=== PATIENT | male | born 1945 | race Caucasian/White ===

== ENCOUNTER 2023-07-06 11:09 | Inpatient (IN) | payer OTHER, MEDICARE ==
[~2023-07-06] VITALS: Ht 170.2 cm; Wt 84.4 kg
[2023-07-06 11:10] VITALS: BP_SYST 138; PULSE 81; RESP 18; TEMP 98.4; O2SAT 98
[2023-07-06] MEDS ORDERED: MORPHINE 4 MG INJ. 4 MG/ML VIAL IVP ONE (11:45)
[2023-07-06] MEDS ORDERED: ONDANSETRON HCL 4 MG/2 ML VIAL IVP ONE (11:45)
[2023-07-06] MEDS ORDERED: NACL 0.9% 1,000 ML IV ONE ×2 (11:45→15:30)
[2023-07-06 12:11] LABS: BASOPHILS % (AUTO) 0.4 % (0.0-2.0); EOSINOPHILS % (AUTO) 0.1 % (0.0-4.0); HEMATOCRIT 40.8 % (36-54); HEMOGLOBIN 13.7 g/dL (14.0-18.0); LYMPHOCYTES # (AUTO) 0.5 K/uL (1.0-5.5); LYMPHOCYTES % (AUTO) 4.4 % (20.5-51.5); MEAN CORPUSCULAR HEMOGLOBIN 30 pg (27-31); MEAN CORPUSCULAR HGB CONC 34 % (32-36); MEAN CORPUSCULAR VOLUME 88 fL (79.0-98.0); MONOCYTES % (AUTO) 8.6 % (1.7-9.3); NEUTROPHILS # (AUTO) 10.4 K/uL (1.8-7.7); NEUTROPHILS % (AUTO) 86.5 % (40.0-70.0); PLATELET COUNT (AUTO) 328 K/uL (130-430); RED BLOOD CELL COUNT(AUTO) 4.62 MIL/uL (4.2-6.2); RED CELL DISTRIBUTION WIDTH 13.2 % (9.0-15.0); WHITE BLOOD COUNT (AUTO) 12.1 K/uL (4.8-10.8)
[2023-07-06 12:16] LABS: PROTHROMBIN TIME 10.1 SECS (9.5-12.5)
[2023-07-06 12:17] LABS: ANION GAP 10 (5-15); CALCIUM 9.5 mg/dL (8.4-11.0); CARBON DIOXIDE 27 mmol/L (23-29); CHLORIDE 100 mmol/L (98-107); CREATININE 1.39 mg/dL (0.55-1.30); GLUCOSE 159 mg/dL (74-106); POTASSIUM 3.8 mmol/L (3.5-5.1); SODIUM SERUM 137 mmol/L (136-145); UREA NITROGEN, BLOOD 18 mg/dL (8-21)
[2023-07-06 12:22] LABS: ALANINE AMINOTRANSFERASE 205 U/L (12-78); ALBUMIN 3.1 g/dL (3.4-4.8); ASPARTATE AMINOTRANSFERASE 114 U/L (10-37); LIPASE 63 U/L (16-77); TOTAL BILIRUBIN 3.8 mg/dL (0.0-1.0); TOTAL PROTEIN, SERUM 7.2 g/dL (6.4-8.3)
[2023-07-06 14:10] LABS: BILIRUBIN,URINE 1+ (NEGATIVE); BLOOD, URINE NEGATIVE (NEGATIVE); CLARITY/URINE CLEAR (CLEAR); COLOR,URINE YELLOW (YELLOW); GLUCOSE,URINE NEGATIVE (NEGATIVE); KETONES,URINE NEGATIVE (NEGATIVE); LEUKOCYTE ESTERASE ,URINE NEGATIVE (NEGATIVE); NITRITE, URINE NEGATIVE (NEGATIVE); PH,URINE 5.5 (5.0-8.0); PROTEIN URINE NEGATIVE (NEGATIVE)
[2023-07-06] MEDS ORDERED: MEROPENEM 1 GM in NS 100 ML IV ONE (15:30)
[2023-07-06] MEDS ORDERED: LEVO150T PO (16:05)
[2023-07-06] MEDS ORDERED: METF-1069 PO (16:05)
[2023-07-06] MEDS ORDERED: LOSA100T24 PO (16:05)
[2023-07-06] MEDS ORDERED: ESOM40CA53 PO (16:05)
[2023-07-06] MEDS ORDERED: SIMV-43 PO (16:05)
[2023-07-06 20:05] VITALS: BP_SYST 138; PULSE 55; RESP 16; TEMP 97.8; O2SAT 96
[2023-07-06 20:10] VITALS: BP_SYST 138; PULSE 55; RESP 16; TEMP 98.2; O2SAT 96
[2023-07-07] MEDS ORDERED: HYDROcodone/ACETAMIN 10-325 MG TAB PO PRN
[2023-07-07] MEDS ORDERED: HYDROcodone/ACETAMIN 5-325 MG TAB (NORCO/ VICODIN) PO PRN
[2023-07-07] MEDS: SIMETHICONE 80 MG TAB.CHEW PO SCH ×2 (00:38→23:07)
[2023-07-07 01:06] VITALS: BP_SYST 127; PULSE 43; RESP 18; TEMP 98.6; O2SAT 96
[2023-07-07 07:30] VITALS: BP_SYST 148; PULSE 47; RESP 18; TEMP 98.1; O2SAT 97
[2023-07-07] MEDS ORDERED: LORazepam 2 MG/ML VIAL IVP PRN (10:45)
[2023-07-07] MEDS ORDERED: MORPHINE 4 MG INJ. 4 MG/ML VIAL IVP PRN (10:45)
[2023-07-07] MEDS ORDERED: NALOXONE HCL 0.4 MG/ML AMP (NARCAN) IVP PRN ×2 (10:45)
[2023-07-07] MEDS ORDERED: MORPHINE 2 MG/ML INJ. SYRINGE IVP PRN (10:45)
[2023-07-07] MEDS ORDERED: ONDANSETRON HCL 4 MG/2 ML VIAL IVP PRN (10:45)
[2023-07-07] MEDS ORDERED: INSULIN REGULAR, HUMAN 100 UNITS/ML, 3 ML VIAL (humuLIN R) SUBCUT PRN (10:45)
[2023-07-07] MEDS: D5/0.45 NS 1,000 ML IV SCH ×2 (11:09→23:07)
[2023-07-07 11:30] VITALS: BP_SYST 154; PULSE 48; RESP 18; TEMP 98.5; O2SAT 97
[2023-07-07 16:00] VITALS: BP_SYST 160; PULSE 44; RESP 18; TEMP 97.7; O2SAT 98
[2023-07-07 20:00] VITALS: BP_SYST 137; PULSE 62; RESP 20; TEMP 97.5; O2SAT 95
[2023-07-08] VITALS: O2SAT 95
[2023-07-08 01:25] VITALS: BP_SYST 148; PULSE 45; RESP 16; TEMP 97.4; O2SAT 99
[2023-07-08 06:47] LABS: BASOPHILS # (AUTO) 0.1 K/uL (0.0-0.2); BASOPHILS % (AUTO) 0.7 % (0.0-2.0); EOSINOPHILS # (AUTO) 0.1 K/uL (0.0-0.4); EOSINOPHILS % (AUTO) 1.5 % (0.0-4.0); HEMATOCRIT 39.2 % (36-54); LYMPHOCYTES # (AUTO) 1.5 K/uL (1.0-5.5); LYMPHOCYTES % (AUTO) 18.8 % (20.5-51.5); MEAN CORPUSCULAR HEMOGLOBIN 29 pg (27-31); MEAN CORPUSCULAR HGB CONC 33 % (32-36); MEAN CORPUSCULAR VOLUME 89 fL (79.0-98.0); MONOCYTES # (AUTO) 0.7 K/uL (0.0-1.0); MONOCYTES % (AUTO) 8.6 % (1.7-9.3); NEUTROPHILS # (AUTO) 5.6 K/uL (1.8-7.7); NEUTROPHILS % (AUTO) 70.4 % (40.0-70.0); PLATELET COUNT (AUTO) 323 K/uL (130-430); RED BLOOD CELL COUNT(AUTO) 4.43 MIL/uL (4.2-6.2); RED CELL DISTRIBUTION WIDTH 13.5 % (9.0-15.0)
[2023-07-08 07:07] LABS: ALANINE AMINOTRANSFERASE 158 U/L (12-78); ANION GAP 9 (5-15); ASPARTATE AMINOTRANSFERASE 73 U/L (10-37); BILIRUBIN,DIRECT 1.3 mg/dL (0.0-0.3); CALCIUM 9.1 mg/dL (8.4-11.0); CARBON DIOXIDE 30 mmol/L (23-29); CHLORIDE 103 mmol/L (98-107); CREATININE 1.17 mg/dL (0.55-1.30); GLUCOSE 123 mg/dL (74-106); POTASSIUM 3.6 mmol/L (3.5-5.1); SODIUM SERUM 142 mmol/L (136-145); TOTAL BILIRUBIN 1.9 mg/dL (0.0-1.0); TOTAL PROTEIN, SERUM 6.9 g/dL (6.4-8.3); UREA NITROGEN, BLOOD 14 mg/dL (8-21)
[2023-07-08 08:30] VITALS: BP_SYST 177; PULSE 61; RESP 17; TEMP 98.1; O2SAT 97
[2023-07-08 11:24] VITALS: BP_SYST 145; PULSE 46; RESP 15; TEMP 97.6; O2SAT 100
[2023-07-08 15:21] VITALS: BP_SYST 161; PULSE 53; RESP 16; TEMP 98.5; O2SAT 97
== END 2023-07-08 16:50 | disposition left against medical advice (07) | DRG 445 ==
LOC: SED 11:09 → SMU 15:57
PROVIDERS: ADMIT Preventive Medicine Preventive Medicine/Occupational Environmental Medicine; ATTEND Preventive Medicine Preventive Medicine/Occupational Environmental Medicine
PROC: CF1C1ZZ Planar Nuclear Medicine Imaging of Hepatobiliary System, All using Technetium 99m (Tc-99m) (ICD-10-PCS; principal; 2023-07-07)
DX: K80.10 Calculus of gallbladder with chronic cholecystitis without obstruction (principal); E44.1 Mild protein-calorie malnutrition; E87.20 Acidosis, unspecified; R74.01 Elevation of levels of liver transaminase levels; E78.5 Hyperlipidemia, unspecified; K76.0 Fatty (change of) liver, not elsewhere classified; I10 Essential (primary) hypertension; E80.6 Other disorders of bilirubin metabolism; K21.9 Gastro-esophageal reflux disease without esophagitis; K44.9 Diaphragmatic hernia without obstruction or gangrene; D72.829 Elevated white blood cell count, unspecified; K22.70 Barrett's esophagus without dysplasia; Z53.29 Procedure and treatment not carried out because of patient's decision for other reasons; E11.65 Type 2 diabetes mellitus with hyperglycemia; Z88.0 Allergy status to penicillin; Z88.8 Allergy status to other drugs, medicaments and biological substances; Z79.899 Other long term (current) drug therapy; Z68.29 Body mass index [BMI] 29.0-29.9, adult
CPT/HCPCS: 36415; 74181; 76376; 76705; 78226; 80053; 80076; 81001; 81003; 82962; 83605; 83690; 84484; 85025; 85610-TC; 87040; 93005; 93306; 96361; 96365; 96375; 97116-GP; 99285; A9537; J2185; J2270; J2405; Q9967